=== PATIENT | female | born 1995 | race Caucasian/White ===

== ENCOUNTER 2021-11-11 09:35 | Inpatient (IN) | payer OTHER, BC ==
[2021-11-11] MEDS ORDERED: Ondansetron 4 MG/2 ML SDV IVPUSH PRN (09:47)
[2021-11-11] MEDS ORDERED: Calcium Carbonate 500 MG Tab.Chew PO PRN (09:47)
[2021-11-11] MEDS ORDERED: Lidocaine 1% 50 ML MDV INJECT PRN (09:47)
[2021-11-11] MEDS ORDERED: Oxytocin/Lactated Ringers 10 UNIT/1,000 ML BAG IV SCH (10:00)
[2021-11-11] MEDS ORDERED: ePHEDrine 50 MG/ML SDV IVPUSH PRN (14:30)
[2021-11-11] MEDS ORDERED: fentaNYL 100 MCG/2 ML SDV EPIDUR PRN (14:30)
[2021-11-11] MEDS ORDERED: diphenhydrAMINE 50 MG/ML SDV IVPUSH PRN (14:30)
[2021-11-11] MEDS ORDERED: Bupivacaine/fentaNYL/NS 100 ML Bag EPIDUR PRN (14:30)
[2021-11-11] MEDS: Lactated Ringers 1,000 ML IV SCH ×2 (14:47→23:10)
[2021-11-11] MEDS: Oxytocin/Lactated Ringers 10 UNIT/1,000 ML BAG IV SCH (14:47)
[2021-11-11] MEDS: Nalbuphine HCl 10 MG/ 1ML Amp IVPUSH PRN ×2 (20:13→23:01)
[2021-11-12] MEDS: Nalbuphine HCl 10 MG/ 1ML Amp IVPUSH PRN (02:16)
[2021-11-12] MEDS: Oxytocin/Lactated Ringers 10 UNIT/1,000 ML BAG IV SCH (05:05)
[2021-11-12] MEDS ORDERED: Benzocaine/Menthol 20%-0.5% Spray 78 GM Cannister TOP PRN (08:03)
[2021-11-12] MEDS ORDERED: Measles, Mumps & Rubella Vaccine 0.5 ML SDV SUBCUT ONE (08:03)
[2021-11-12] MEDS ORDERED: Magnesium Hydroxide 400 MG/5 ML Susp 30 ML Cup PO PRN (08:03)
[2021-11-12] MEDS ORDERED: Hydrocortisone Acetate 25 MG Supp RECTAL PRN (08:03)
[2021-11-12] MEDS ORDERED: Oxytocin/Lactated Ringers 10 UNIT/1,000 ML BAG IV SCH (08:03)
[2021-11-12] MEDS ORDERED: Witch Hazel Medicated Pads 40/Jar TOP PRN (08:03)
[2021-11-12] MEDS: Acetaminophen 325 MG Tab PO PRN ×2 (08:53→20:09)
[2021-11-12] MEDS: Prenatal Multivitamin with Calcium/Folic Acid/Iron Tab PO SCH (08:53)
[2021-11-12] MEDS: Ibuprofen 600 MG Tab PO PRN (08:53)
[2021-11-12] MEDS: Docusate Sodium 100 MG Cap PO PRN (08:54)
[2021-11-12] MEDS: Ferrous Sulfate 324 MG Tab.EC PO SCH (20:10)
[2021-11-13] MEDS: Ferrous Sulfate 324 MG Tab.EC PO SCH ×2 (08:12→20:10)
[2021-11-13] MEDS: Docusate Sodium 100 MG Cap PO PRN ×2 (08:12→20:12)
[2021-11-13] MEDS: Prenatal Multivitamin with Calcium/Folic Acid/Iron Tab PO SCH (08:12)
[2021-11-13] MEDS: Acetaminophen 325 MG Tab PO PRN (08:12)
[2021-11-13] MEDS: Ibuprofen 600 MG Tab PO PRN ×2 (14:49→21:26)
[2021-11-14] MEDS: Acetaminophen 325 MG Tab PO PRN ×4 (01:02→21:47)
[2021-11-14] MEDS: Prenatal Multivitamin with Calcium/Folic Acid/Iron Tab PO SCH (09:13)
[2021-11-14] MEDS: Ferrous Sulfate 324 MG Tab.EC PO SCH ×2 (09:13→17:04)
[2021-11-14] MEDS: Clindamycin Phosphate in D5W 900 MG in Premix Bag 1 BAG IV SCH ×4 (09:47→16:58)
[2021-11-14] MEDS: Ibuprofen 600 MG Tab PO PRN (14:30)
[2021-11-14] MEDS: Docusate Sodium 100 MG Cap PO PRN (21:47)
[2021-11-15] MEDS: Ibuprofen 600 MG Tab PO PRN (01:59)
[2021-11-15] MEDS: Clindamycin Phosphate in D5W 900 MG in Premix Bag 1 BAG IV SCH ×4 (02:02→08:57)
[2021-11-15] MEDS: Acetaminophen 325 MG Tab PO PRN (08:52)
[2021-11-15] MEDS: Prenatal Multivitamin with Calcium/Folic Acid/Iron Tab PO SCH (08:56)
[2021-11-15] MEDS: Ferrous Sulfate 324 MG Tab.EC PO SCH (08:56)
== END 2021-11-15 13:30 | disposition home or self-care (01) | DRG 806 ==
LOC: JD.OBCHECK 09:35 → JD.OB 09:37 → OBSVTOIN 09:48 → INTOOBSV 09:48 → JD.OB 09:48 → UNDOADMOB 09:48 → JD.OBCHECK 09:56 → OBSVTOIN 09:57 → JD.OB 09:57
PROVIDERS: ADMIT Obstetrics & Gynecology; ATTEND Obstetrics & Gynecology
PROC: 10E0XZZ Delivery of Products of Conception, External Approach (ICD-10-PCS; principal; 2021-11-11)
PROC: 0KQM0ZZ Repair Perineum Muscle, Open Approach (ICD-10-PCS; 2021-11-11)
PROC: 10907ZC Drainage of Amniotic Fluid, Therapeutic from Products of Conception, Via Natural or Artificial Opening (ICD-10-PCS; 2021-11-11)
DX: O48.0 Post-term pregnancy (principal); O86.12 Endometritis following delivery; Z37.0 Single live birth; Z3A.41 41 weeks gestation of pregnancy; Z20.822 Contact with and (suspected) exposure to COVID-19; Z87.891 Personal history of nicotine dependence; O99.344 Other mental disorders complicating childbirth; F32.A Depression, unspecified; O69.81X0 Labor and delivery complicated by cord around neck, without compression, not applicable or unspecified; O70.1 Second degree perineal laceration during delivery
CPT/HCPCS: 36415; 59025; 59409; 80053; 84443; 85025; 85027; 86592; 87040; 90471; 90707; 93005; A9270-GY; J1580; J2001; J2300; J2590; J3490; J7120; U0002